=== PATIENT | female | born 1980 | race Two or more races ===

== ENCOUNTER 2020-07-27 20:27 | Emergency (ER) | payer OTHER ==
[~2020-07-27] VITALS: Ht 152.4 cm; Wt 49.0 kg
--- NOTE | 2020-07-27 20:32 | NUR ---
PT BIBSELF C/O GENERALIZE SHARP, STABBING ABD PAIN SINCE 0730 THIS MORNING. PT AAOX4 BREATHING EVENLY AND UNLABORED. PT SKIN IS WARM, DRY, AND INTACT. PT DENIES TRAUMA, CHANGE IN DIET, CONSTIPATION, OR DIAHRREA. PT ATTACHED TO MONITOR AND POX. PT GIVEN BLANKET AND CALL LIGHT WITHIN REACH
--- NOTE | 2020-07-27 20:39 | NUR ---
URINE OBTAINED AND SENT TO LAB
--- NOTE | 2020-07-27 21:35 | NUR ---
RT AC 20G INITIATED
[2020-07-27] MEDS: IV NS 0.9% 1,000 ML BAG IV ONE (21:40)
[2020-07-27] MEDS: MAGNESIUM HYDROXIDE 30 ML UDC PO ONE (21:40)
--- NOTE | 2020-07-27 21:40 | NUR ---
BLOOD OBTAINED AND SENT TO LAB
[2020-07-27] MEDS ORDERED: MAGNESIUM HYDROXIDE 30 ML UDC ONE (21:42)
[2020-07-27 21:48] LABS: BILIRUBIN,URINE Negative (NEGATIVE); COLOR,URINE YELLOW (YELLOW); LEUKOCYTE ESTERASE ,URINE Negative (NEGATIVE); NITRITE, URINE Negative (NEGATIVE); PH,URINE 7.5 (5.0-8.0); PROTEIN,URINE Negative (NEGATIVE); UGLUCOSE Negative (NEGATIVE)
[2020-07-27 21:48] LABS: BASOPHILS % (AUTO) 0.4 % (0.0-2.0); EOSINOPHILS % (AUTO) 2.3 % (0.0-6.0); HEMATOCRIT 39 % (33-45); HEMOGLOBIN 13.2 g/dL (11.5-14.8); LYMPHOCYTES # (AUTO) 2.5 /CMM (0.8-4.8); LYMPHOCYTES % (AUTO) 33.5 % (20.0-44.0); MEAN CORPUSCULAR HGB CONC 34 g/dl (31.0-36.0); MEAN CORPUSCULAR VOLUME 88 fL (82-100); MONOCYTES # (AUTO) 0.5 /CMM (0.1-1.30); MONOCYTES % (AUTO) 6.8 % (2.0-12.0); NEUTROPHILS # (AUTO) 4.2 /CMM (1.8-8.9); PLATELET COUNT (AUTO) 256 /CMM (150-450); RED BLOOD CELL COUNT(AUTO) 4.48 MIL/uL (4.0-5.2); WHITE BLOOD COUNT (AUTO) 7.4 K/uL (4.3-11.0)
[2020-07-27 21:58] LABS: CALCIUM, SERUM 8.8 mg/dL (8.5-10.1); CREATININE 0.7 mg/dL (0.6-1.3); POTASSIUM 3.7 mmol/L (3.5-5.1)
[2020-07-27 22:01] LABS: BACTERIA,URINE Rare /HPF (None Seen); MUCUS,URINE Rare /LPF (None Seen); RBC,URINE 0-2 /HPF (0-2); SQUAMOUS EPITHELIAL CELL,UR 0-2 /HPF (None Seen); WBC,URINE 0-2 /HPF (0-3)
[2020-07-27 22:04] LABS: ALBUMIN 4.3 g/dL (3.4-5.0); BILIRUBIN,DIRECT 0.1 mg/dL (0.0-0.2); BILIRUBIN,TOTAL 0.3 mg/dL (0.2-1.0); TOTAL PROTEIN, SERUM 7.8 g/dL (6.4-8.2)
[2020-07-27] MEDS ORDERED: BISA-79 PO (22:57)
--- NOTE | 2020-07-27 22:58 | NUR ---
Patient discharged to home in stable condition. Written and verbal after care instructions given. Patient verbalizes understanding of instruction. IV removed. Catheter intact and site benign. Pressure and 4x4 applied to site. No bleeding noted. Pt ambulatory with a steady gait
[2020-07-27 23:07] VITALS: BP 109/70
== END 2020-07-27 22:58 | disposition home or self-care (01) ==
LOC: ER 20:34
DX: K59.00 Constipation, unspecified (principal); Z79.899 Other long term (current) drug therapy
CPT/HCPCS: 36415; 80048; 80076; 81001; 83690; 84703; 85025; 96360; 99283; J7030